=== PATIENT | male | born 2000 | race Two or more races ===

== ENCOUNTER 2023-09-19 18:27 | Emergency (ER) | payer MEDICAID ==
[~2023-09-19] VITALS: Ht 185.4 cm; Wt 76.2 kg
[2023-09-19] MEDS ORDERED: CT SWABBABLE VALVE TRANS SET 1 EA INFUS.SET MC ONE (19:19)
[2023-09-19] MEDS ORDERED: IOHEXOL-300 100 ML VIAL IV ONE (19:19)
[2023-09-19] MEDS ORDERED: ACETAMINOPHEN ES 500 MG TABLET ONE (19:19)
[2023-09-19] MEDS ORDERED: IV NS 0.9% 250 ML IV ONE (19:19)
[2023-09-19] MEDS ORDERED: dexaMETHasone SOD PHOSPHATE 1 ML ONE (19:19)
[2023-09-19] MEDS: dexaMETHasone SOD PHOSPHATE 10 MG/ML VIAL MC ONE (19:20)
[2023-09-19] MEDS: ACETAMINOPHEN ES 500 MG TABLET PO ONE (19:20)
[2023-09-19] MEDS ORDERED: IBUP-1955 PO (21:30)
[2023-09-19] MEDS ORDERED: PENI500T PO (21:30)
[2023-09-19] MEDS ORDERED: ACET-2605 PO (21:30)
[2023-09-19] MEDS ORDERED: IBUPROFEN 400 MG TABLET ONE (21:36)
[2023-09-19 21:58] VITALS: BP 121/71; TEMP 98.8; O2SAT 99
[2023-09-19] MEDS: PENICILLIN V POTASSIUM 500 MG TABLET PO ONE (21:58)
[2023-09-19] MEDS: IBUPROFEN 400 MG TABLET PO ONE (21:58)
== END 2023-09-19 21:59 | disposition home or self-care (01) ==
LOC: ER 18:35
DX: J03.90 Acute tonsillitis, unspecified (principal); M54.2 Cervicalgia; Z20.822 Contact with and (suspected) exposure to COVID-19
CPT/HCPCS: 99285; 70491; 87426; 87804 ×2; 87070; 87880; J1100; J7050; Q9967; 86403-TC

== ENCOUNTER 2025-03-22 14:46 | Emergency (ER) | payer MEDICAID ==
[~2025-03-22] VITALS: Ht 182.9 cm; Wt 74.8 kg
[~2025-03-22 14:46] MED LIST: ACET-2605 PO; IBUP-1955 PO; PENI500T PO
[2025-03-22 14:51] VITALS: BP 131/87; TEMP 98.3
[2025-03-22] MEDS ORDERED: LIDOCAINE 1%-EPI 1:100,000 20 ML VIAL ONE (15:57)
[2025-03-22] MEDS: ACETAMINOPHEN 325 MG TABLET PO ONE (16:00)
[2025-03-22] MEDS: LIDOCAINE 1%-EPI 1:100,000 20 ML VIAL TP ONE (16:33)
[2025-03-22] MEDS ORDERED: SULF1TAB48 PO (16:57)
[2025-03-22] MEDS: TDAP [DIPH/PERTUSSIS/TET] 0.5 ML VIAL IM ONE (17:11)
[2025-03-22 17:12] VITALS: O2SAT 99
== END 2025-03-22 17:13 | disposition home or self-care (01) ==
LOC: ER 14:47
DX: S51.812A Laceration without foreign body of left forearm, initial encounter (principal); Y04.0XXA Assault by unarmed brawl or fight, initial encounter; Y93.89 Activity, other specified; Y92.89 Other specified places as the place of occurrence of the external cause; Y99.8 Other external cause status
CPT/HCPCS: 12002; 73110; 99283; A6403; J3490

== ENCOUNTER 2025-03-29 20:45 | Emergency (ER) | payer MEDICAID ==
[~2025-03-29] VITALS: Ht 182.9 cm; Wt 74.8 kg
[~2025-03-29 20:45] MED LIST changes: +SULF1TAB48 PO
[2025-03-29 21:02] VITALS: BP 122/74; TEMP 98; O2SAT 99
== END 2025-03-29 21:20 | disposition home or self-care (01) ==
LOC: ER 20:45
DX: S61.512D Laceration without foreign body of left wrist, subsequent encounter (principal); X58.XXXD Exposure to other specified factors, subsequent encounter